=== PATIENT | male | born 1950 | race Caucasian/White ===

== ENCOUNTER 2022-12-07 15:05 | Outpatient (CLI) | payer OTHER, MEDICAID ==
[2022-12-07 15:41] LABS: #Basophils 0.1 thou/uL (0.0-0.2); #Eosinphils 0.5 thou/uL (0.0-0.7); #Monocytes 0.3 thou/uL (0.11-0.59); #Neutrophils 5.8 thou/uL (1.40-6.50); %Basophils 1.5 % (0.0-1.0); %Lymphocytes 13.3 % (21.0-51.0); %Monocytes 4.1 % (0.0-10.0); %Neutrophils 75.1 % (42.0-75.0); Hematocrit 28.8 % (42.0-52.0); Hemoglobin 9.2 g/dL (14.0-18.0); Mean Corpuscular HGB CONC 31.7 g/dL (32.0-36.0); Mean Corpuscular Hemoglobin 29.6 pg (27.0-31.0); Mean Corpuscular Volume 93.4 fl (78.0-98.0); Mean Platelet Volume 7.2 fL (7.4-10.4); Platelet Count 368 10x3/uL (130-400); RBC Distribution Width 17.9 % (11.5-14.5); Red Blood Cell (RBC) Count 3.09 mill/uL (4.70-6.10); White Blood Cell (WBC) Count 7.7 10x3/uL (4.8-10.8)
[2022-12-07 15:42] LABS: MDiff Complete? YES; Manual Diff?? NO
[2022-12-07 15:53] LABS: Vancomycin, Random 9.8 ug/mL (See Comment)
[2022-12-07 15:55] LABS: ALT (SGPT) 29 U/L (8-55); AST (SGOT) 18 U/L (5-34); Albumin 3.3 g/dL (3.4-4.8); Alkaline Phosphatase 176 U/L (40-110); Anion Gap 15 mmol/L (10-20); BUN (Urea Nitrogen) 28 mg/dL (8.4-25.7); Bilirubin, Total 0.8 mg/dL (0.2-1.2); Calc. Creatinine Clearance 0 mL/min (70-130); Calcium 8.7 mg/dL (7.8-10.44); Carbon Dioxide 30 mmol/L (23-31); Chloride 99 mmol/L (98-107); Estimated GFR 74; Globulin 2.1 g/dL (2.4-3.5); Glucose 115 mg/dL (83-110); Potassium 4.5 mmol/L (3.5-5.1); Protein, Total 5.4 g/dL (5.8-8.1); Sodium 139 mmol/L (136-145)
== END 2022-12-07 15:06 | disposition home or self-care (01) ==
LOC: BURLAB 15:05
PROVIDERS: ATTEND Family Medicine
DX: I50.22 Chronic systolic (congestive) heart failure (principal); A41.9 Sepsis, unspecified organism
CPT/HCPCS: 80053; 80202; 85025